=== PATIENT | female | born 1945 | race Two or more races ===

== ENCOUNTER 2021-08-23 07:24 | Outpatient (CLI) | payer OTHER | END 2021-08-23 07:25 | disposition home or self-care (01) | LOC: NUCLEAR 07:24 | PROVIDERS: ATTEND Internal Medicine Hematology & Oncology | DX: K82.9 Disease of gallbladder, unspecified (principal) | CPT/HCPCS: 78227; A9537; J2805 ==

== ENCOUNTER 2021-09-13 09:34 | Outpatient (CLI) | payer OTHER | END 2021-09-13 09:43 | disposition home or self-care (01) | LOC: LAB 09:34 | PROVIDERS: ATTEND Internal Medicine Hematology & Oncology | DX: D50.8 Other iron deficiency anemias (principal); I10 Essential (primary) hypertension; R79.89 Other specified abnormal findings of blood chemistry; R74.02 Elevation of levels of lactic acid dehydrogenase [LDH]; K76.89 Other specified diseases of liver; D51.1 Vitamin B12 deficiency anemia due to selective vitamin B12 malabsorption with proteinuria; E03.8 Other specified hypothyroidism; E06.3 Autoimmune thyroiditis; R97.0 Elevated carcinoembryonic antigen [CEA]; R97.8 Other abnormal tumor markers; E55.9 Vitamin D deficiency, unspecified; M81.0 Age-related osteoporosis without current pathological fracture; K80.10 Calculus of gallbladder with chronic cholecystitis without obstruction ==

== ENCOUNTER 2022-10-27 11:38 | Emergency (ER) | payer OTHER ==
[~2022-10-27] VITALS: Ht 142.2 cm; Wt 48.1 kg
[2022-10-27] MEDS ORDERED: ARICEPT10 MG (11:51)
[2022-10-27] MEDS ORDERED: PROTONIX40 MG (11:51)
[2022-10-27] MEDS ORDERED: CRESTOR5 MG (11:52)
[2022-10-27] MEDS ORDERED: PEPCID AC10 MG (11:52)
== END 2022-10-27 20:12 | disposition home or self-care (01) ==
LOC: ER 11:38
DX: K29.70 Gastritis, unspecified, without bleeding (principal); K80.20 Calculus of gallbladder without cholecystitis without obstruction; I10 Essential (primary) hypertension; K27.9 Peptic ulcer, site unspecified, unspecified as acute or chronic, without hemorrhage or perforation; Z88.6 Allergy status to analgesic agent; K21.9 Gastro-esophageal reflux disease without esophagitis

== ENCOUNTER 2023-03-01 09:13 | Outpatient (CLI) | payer OTHER ==
[~2023-03-01 09:13] MED LIST: ARICEPT10 MG; CRESTOR5 MG; PEPCID AC10 MG; PROTONIX40 MG
== END 2023-03-01 09:30 | disposition home or self-care (01) ==
LOC: TOM 09:13
PROVIDERS: ATTEND Internal Medicine Hematology & Oncology
DX: K80.10 Calculus of gallbladder with chronic cholecystitis without obstruction (principal); M81.0 Age-related osteoporosis without current pathological fracture; D51.3 Other dietary vitamin B12 deficiency anemia; D51.1 Vitamin B12 deficiency anemia due to selective vitamin B12 malabsorption with proteinuria
CPT/HCPCS: 71260; 74177; Q9965

== ENCOUNTER 2023-03-12 13:39 | Outpatient (CLI) | payer OTHER | END 2023-03-12 13:42 | disposition home or self-care (01) | LOC: NUCLEAR 13:39 | PROVIDERS: ATTEND Internal Medicine Hematology & Oncology | DX: M81.0 Age-related osteoporosis without current pathological fracture (principal); K80.10 Calculus of gallbladder with chronic cholecystitis without obstruction; D51.3 Other dietary vitamin B12 deficiency anemia; D51.1 Vitamin B12 deficiency anemia due to selective vitamin B12 malabsorption with proteinuria ==

== ENCOUNTER → 2023-04-30 06:00 | Outpatient (CLI) | payer OTHER | END | disposition home or self-care (01) | LOC: LAB 06:00 → ADM 14:00 → AMB-ENDOS 05-02 14:00 → EDSTATUS 05-02 14:00 | PROVIDERS: ATTEND Surgery | DX: Z03.818 Encounter for observation for suspected exposure to other biological agents ruled out (principal); Z20.822 Contact with and (suspected) exposure to COVID-19 ==

== ENCOUNTER 2023-04-30 16:51 | Inpatient (IN) | payer OTHER ==
[~2023-04-30] VITALS: Ht 152.4 cm; Wt 40.8 kg
[2023-04-30 20:04] LABS: HEMATOCRIT 25.6 % (36.0-45.00); MEAN CORPUSCULAR HGB CONC 31.1 g/dl (32.0-36.0); PLATELET COUNT 506 K/uL (150-450); RED BLOOD COUNT 3.69 M/uL (4.00-6.00); RED CELL DISTRIBUTION WIDTH 18.8 % (11.5-14.5)
[2023-04-30 20:07] LABS: MEAN CELL VOLUME 69.4 fL (80.00-100.00); MEAN CORPUSCULAR HEMOGLOBIN 21.6 pg (27.00-32.0)
[2023-04-30 20:26] LABS: ALBUMIN 2.2 gm/dL (3.4-5.0); BILIRUBIN TOTAL 0.36 mg/dL (0.3-1.2); CALCIUM 7.6 mg/dL (8.5-10.1); CREATININE SERUM 0.55 mg/dL (0.55-1.02); GFR 107.75; GLOBULINA 5.3 G/DL (2.4-3.5); POTASSIUM 3.39 mEq/L (3.5-5.1); TOTAL PROTEIN 7.5 gm/dL (6.4-8.2)
[2023-04-30 23:13] LABS: PH,URINE 6.5 (5.0-8.0); URINE APPEARANCE Clear; URINE BILIRRUBIN Negative (NEGATIVE); URINE BLOOD Negative; URINE COLOR Yellow; URINE GLUCOSE Negative (NEGATIVE); URINE LEUKOCYTE Negative; URINE NITRATE Negative; URINE PROTEIN Negative (NEGATIVE); URINE UROBILINOGEN 0.2 E.U./dl
[2023-04-30 23:17] LABS: URINE BACTERIA 191.9 uL (0.0-1933); URINE EPITHELIAL CELLS 23.4 uL (0.0-38.8); URINE RBC 2.9 uL (0.0-20.8); URINE WBC 13.7 uL (0.0-23.2)
[2023-05-01 04:14] LABS: INR 1.12; PARTIAL THROMBOPLASTIN TIME 30.4 SECONDS (22.0-34.0); PROTHROMBIN TIME 11.7 SECONDS (9.0-11.5)
[2023-05-01 13:07] LABS: CALCIUM 7.3 mg/dL (8.5-10.1); CHOL HDL RATIO 2.2 (0-5.0); CREATININE SERUM 0.55 mg/dL (0.55-1.02); GFR 107.75; POTASSIUM 3.35 mEq/L (3.5-5.1)
[2023-05-01 22:20] LABS: URINE APPEARANCE Clear; URINE BILIRRUBIN Negative (NEGATIVE); URINE BLOOD Negative; URINE COLOR Yellow; URINE GLUCOSE Negative (NEGATIVE); URINE LEUKOCYTE Negative; URINE NITRATE Negative; URINE PROTEIN Negative (NEGATIVE); URINE UROBILINOGEN 0.2 E.U./dl
[2023-05-01 22:21] LABS: URINE BACTERIA 8.4 uL (0.0-1933); URINE EPITHELIAL CELLS 5.1 uL (0.0-38.8); URINE RBC 4.5 uL (0.0-20.8)
[2023-05-02 06:39] LABS: HEMATOCRIT 29.9 % (36.0-45.00); HEMOGLOBIN 10.2 g/dL (12.0-15.00); MEAN CELL VOLUME 76.6 fL (80.00-100.00); MEAN CORPUSCULAR HEMOGLOBIN 26.1 pg (27.00-32.0); MEAN CORPUSCULAR HGB CONC 34.1 g/dl (32.0-36.0); PLATELET COUNT 363 K/uL (150-450); RED CELL DISTRIBUTION WIDTH 20.1 % (11.5-14.5)
[2023-05-02 07:10] LABS: BILIRUBIN TOTAL 0.48 mg/dL (0.3-1.2); CALCIUM 7.8 mg/dL (8.5-10.1); CREATININE SERUM 0.34 mg/dL (0.55-1.02); GFR 187.7; GLOBULINA 3.8 G/DL (2.4-3.5); PHOSPHOROUS 3.1 mg/dL (2.5-4.9); POTASSIUM 3.58 mEq/L (3.5-5.1); TOTAL PROTEIN 5.8 gm/dL (6.4-8.2)
[2023-05-02 07:18] LABS: C-REACTIVE PROTEIN 16.5 MG/DL (0.00-0.29)
[2023-05-06 06:44] LABS: HEMATOCRIT 33.6 % (36.0-45.00); HEMOGLOBIN 11.2 g/dL (12.0-15.00); MEAN CELL VOLUME 76.5 fL (80.00-100.00); MEAN CORPUSCULAR HEMOGLOBIN 25.5 pg (27.00-32.0); MEAN CORPUSCULAR HGB CONC 33.3 g/dl (32.0-36.0); PLATELET COUNT 329 K/uL (150-450); RED BLOOD COUNT 4.39 M/uL (4.00-6.00); RED CELL DISTRIBUTION WIDTH 20.8 % (11.5-14.5)
[2023-05-06 06:55] LABS: INR 1.11; PROTHROMBIN TIME 11.6 SECONDS (9.0-11.5)
[2023-05-06 07:08] LABS: ALBUMIN 2.3 gm/dL (3.4-5.0); BILIRUBIN TOTAL 0.32 mg/dL (0.3-1.2); BILIRUBIN,CONJUGATED 0.16 mg/dL (0.0-0.2); BILIRUBIN,UNCONJUGATED 0.16 mg/dL (0.0-0.6); CALCIUM 7.8 mg/dL (8.5-10.1); CHOL HDL RATIO 1.7 (0-5.0); CREATININE SERUM 0.35 mg/dL (0.55-1.02); GFR 181.53; GLOBULINA 3.6 G/DL (2.4-3.5); MAGNESIUM 2.1 mg/dL (1.8-2.4); POTASSIUM 3.15 mEq/L (3.5-5.1); TOTAL PROTEIN 5.9 gm/dL (6.4-8.2)
[2023-05-07 07:07] LABS: hav igm Negative (Negative); hcv Non Reactive (Non Reactive); hep b c Negative (Negative)
[2023-05-08 08:21] LABS: UREA CLEARANCE 41.6 ML/MIN
[2023-05-09 07:17] LABS: HEMATOCRIT 33.6 % (36.0-45.00); HEMOGLOBIN 10.9 g/dL (12.0-15.00); MEAN CELL VOLUME 93.8 fL (80.00-100.00); MEAN CORPUSCULAR HEMOGLOBIN 30.6 pg (27.00-32.0); MEAN CORPUSCULAR HGB CONC 32.6 g/dl (32.0-36.0); PLATELET COUNT 135 K/uL (150-450); RED BLOOD COUNT 3.58 M/uL (4.00-6.00); RED CELL DISTRIBUTION WIDTH 12.9 % (11.5-14.5)
[2023-05-09 07:39] LABS: ALBUMIN 3.1 gm/dL (3.4-5.0); BILIRUBIN TOTAL 0.5 mg/dL (0.3-1.2); CALCIUM 8.1 mg/dL (8.5-10.1); CREATININE SERUM 0.84 mg/dL (0.55-1.02); GFR 66.1; GLOBULINA 3.2 G/DL (2.4-3.5); MAGNESIUM 1.8 mg/dL (1.8-2.4); PHOSPHOROUS 2.8 mg/dL (2.5-4.9); POTASSIUM 4.28 mEq/L (3.5-5.1); TOTAL PROTEIN 6.3 gm/dL (6.4-8.2)
[2023-05-12 14:17] LABS: HEMATOCRIT 36.4 % (36.0-45.00); HEMOGLOBIN 11.9 g/dL (12.0-15.00); MEAN CELL VOLUME 79.2 fL (80.00-100.00); MEAN CORPUSCULAR HGB CONC 32.8 g/dl (32.0-36.0); PLATELET COUNT 218 K/uL (150-450); RED BLOOD COUNT 4.59 M/uL (4.00-6.00)
[2023-05-12 14:28] LABS: RED CELL DISTRIBUTION WIDTH 25.4 % (11.5-14.5)
[2023-05-12 14:38] LABS: INR 1.09; PARTIAL THROMBOPLASTIN TIME 37.6 SECONDS (22.0-34.0); PROTHROMBIN TIME 11.4 SECONDS (9.0-11.5)
[2023-05-12 14:48] LABS: ALBUMIN 2.7 gm/dL (3.4-5.0); BILIRUBIN TOTAL 0.26 mg/dL (0.3-1.2); CALCIUM 8.2 mg/dL (8.5-10.1); CREATININE SERUM 0.46 mg/dL (0.55-1.02); GFR 132.43; GLOBULINA 3.3 G/DL (2.4-3.5); MAGNESIUM 2.1 mg/dL (1.8-2.4)
[2023-05-12 14:59] LABS: PHOSPHOROUS 1.7 mg/dL (2.5-4.9); POTASSIUM 2.82 mEq/L (3.5-5.1)
[2023-05-13 07:08] LABS: HEMATOCRIT 31.3 % (36.0-45.00); HEMOGLOBIN 10.6 g/dL (12.0-15.00); MEAN CELL VOLUME 78.1 fL (80.00-100.00); MEAN CORPUSCULAR HEMOGLOBIN 26.3 pg (27.00-32.0); MEAN CORPUSCULAR HGB CONC 33.7 g/dl (32.0-36.0); PLATELET COUNT 256 K/uL (150-450); RED BLOOD COUNT 4.02 M/uL (4.00-6.00); RED CELL DISTRIBUTION WIDTH 24.2 % (11.5-14.5)
[2023-05-13 07:15] LABS: ALBUMIN 2.4 gm/dL (3.4-5.0); BILIRUBIN TOTAL 0.29 mg/dL (0.3-1.2); BILIRUBIN,CONJUGATED 0.12 mg/dL (0.0-0.2); BILIRUBIN,UNCONJUGATED 0.17 mg/dL (0.0-0.6); CALCIUM 7.2 mg/dL (8.5-10.1); CHOL HDL RATIO 1.9 (0-5.0); GFR 225.52; POTASSIUM 3.24 mEq/L (3.5-5.1); TOTAL PROTEIN 5.4 gm/dL (6.4-8.2)
[2023-05-13 07:27] LABS: CREATININE SERUM 0.29 mg/dL (0.55-1.02)
[2023-05-13 07:54] LABS: INR 1.06; PARTIAL THROMBOPLASTIN TIME 29.2 SECONDS (22.0-34.0); PROTHROMBIN TIME 11.1 SECONDS (9.0-11.5)
[2023-05-15 07:51] LABS: HEMATOCRIT 33.8 % (36.0-45.00); HEMOGLOBIN 11.2 g/dL (12.0-15.00); MEAN CELL VOLUME 78.7 fL (80.00-100.00); MEAN CORPUSCULAR HEMOGLOBIN 26.2 pg (27.00-32.0); MEAN CORPUSCULAR HGB CONC 33.3 g/dl (32.0-36.0); PLATELET COUNT 243 K/uL (150-450); RED BLOOD COUNT 4.29 M/uL (4.00-6.00)
[2023-05-15 08:13] LABS: RED CELL DISTRIBUTION WIDTH 25.9 % (11.5-14.5)
[2023-05-15 08:25] LABS: ALBUMIN 2.7 gm/dL (3.4-5.0); BILIRUBIN TOTAL 0.34 mg/dL (0.3-1.2); CREATININE SERUM 0.39 mg/dL (0.55-1.02); GFR 160.21; MAGNESIUM 2.1 mg/dL (1.8-2.4); PHOSPHOROUS 2.1 mg/dL (2.5-4.9); POTASSIUM 3.77 mEq/L (3.5-5.1); TOTAL PROTEIN 5.7 gm/dL (6.4-8.2)
[2023-05-20 06:53] LABS: HEMOGLOBIN 10.4 g/dL (12.0-15.00); MEAN CELL VOLUME 81.2 fL (80.00-100.00); MEAN CORPUSCULAR HEMOGLOBIN 26.5 pg (27.00-32.0); MEAN CORPUSCULAR HGB CONC 32.6 g/dl (32.0-36.0); PLATELET COUNT 201 K/uL (150-450); RED BLOOD COUNT 3.94 M/uL (4.00-6.00)
[2023-05-20 07:04] LABS: RED CELL DISTRIBUTION WIDTH 27.6 % (11.5-14.5)
[2023-05-20 07:28] LABS: ALBUMIN 2.6 gm/dL (3.4-5.0); BILIRUBIN TOTAL 0.3 mg/dL (0.3-1.2); CALCIUM 8.1 mg/dL (8.5-10.1); CREATININE SERUM 0.35 mg/dL (0.55-1.02); GFR 181.04; GLOBULINA 3.3 G/DL (2.4-3.5); POTASSIUM 4.36 mEq/L (3.5-5.1); TOTAL PROTEIN 5.9 gm/dL (6.4-8.2)
[2023-05-23 06:23] LABS: HEMATOCRIT 33.9 % (36.0-45.00); HEMOGLOBIN 11.3 g/dL (12.0-15.00); MEAN CELL VOLUME 81.1 fL (80.00-100.00); MEAN CORPUSCULAR HEMOGLOBIN 27.1 pg (27.00-32.0); MEAN CORPUSCULAR HGB CONC 33.5 g/dl (32.0-36.0); PLATELET COUNT 224 K/uL (150-450); RED BLOOD COUNT 4.18 M/uL (4.00-6.00)
[2023-05-23 06:27] LABS: RED CELL DISTRIBUTION WIDTH 27.5 % (11.5-14.5)
[2023-05-23 07:16] LABS: ALBUMIN 2.7 gm/dL (3.4-5.0); BILIRUBIN TOTAL 0.27 mg/dL (0.3-1.2); CALCIUM 8.2 mg/dL (8.5-10.1); CREATININE SERUM 0.41 mg/dL (0.55-1.02); GFR 150.83; GLOBULINA 3.3 G/DL (2.4-3.5); POTASSIUM 4.09 mEq/L (3.5-5.1)
[2023-05-27 08:12] LABS: HEMATOCRIT 33.8 % (36.0-45.00); HEMOGLOBIN 11.3 g/dL (12.0-15.00); MEAN CELL VOLUME 81.7 fL (80.00-100.00); MEAN CORPUSCULAR HEMOGLOBIN 27.3 pg (27.00-32.0); MEAN CORPUSCULAR HGB CONC 33.4 g/dl (32.0-36.0); PLATELET COUNT 226 K/uL (150-450); RED BLOOD COUNT 4.14 M/uL (4.00-6.00)
[2023-05-27 08:38] LABS: ALBUMIN 2.5 gm/dL (3.4-5.0); CALCIUM 8.2 mg/dL (8.5-10.1); CREATININE SERUM 0.51 mg/dL (0.55-1.02); GFR 117.25; PHOSPHOROUS 2.4 mg/dL (2.5-4.9); POTASSIUM 3.32 mEq/L (3.5-5.1)
[2023-05-27 08:46] LABS: RED CELL DISTRIBUTION WIDTH 26.4 % (11.5-14.5)
[2023-05-28 07:44] LABS: HEMATOCRIT 33.4 % (36.0-45.00); MEAN CELL VOLUME 81.7 fL (80.00-100.00); MEAN CORPUSCULAR HGB CONC 33.3 g/dl (32.0-36.0); PLATELET COUNT 216 K/uL (150-450); RED BLOOD COUNT 4.09 M/uL (4.00-6.00)
[2023-05-28 07:47] LABS: RED CELL DISTRIBUTION WIDTH 26.5 % (11.5-14.5)
[2023-05-28 07:48] LABS: HEMOGLOBIN 11.1 g/dL (12.0-15.00); MEAN CORPUSCULAR HEMOGLOBIN 27.1 pg (27.00-32.0)
[2023-05-28 08:16] LABS: ALBUMIN 2.4 gm/dL (3.4-5.0); BILIRUBIN TOTAL 0.34 mg/dL (0.3-1.2); CALCIUM 7.8 mg/dL (8.5-10.1); CREATININE SERUM 0.51 mg/dL (0.55-1.02); GFR 117.25; GLOBULINA 3.4 G/DL (2.4-3.5); MAGNESIUM 1.8 mg/dL (1.8-2.4); PHOSPHOROUS 3.4 mg/dL (2.5-4.9); POTASSIUM 3.86 mEq/L (3.5-5.1); TOTAL PROTEIN 5.8 gm/dL (6.4-8.2)
[2023-05-30 06:51] LABS: HEMATOCRIT 33.1 % (36.0-45.00); HEMOGLOBIN 10.9 g/dL (12.0-15.00); MEAN CELL VOLUME 82.1 fL (80.00-100.00); MEAN CORPUSCULAR HEMOGLOBIN 26.9 pg (27.00-32.0); MEAN CORPUSCULAR HGB CONC 32.8 g/dl (32.0-36.0); PLATELET COUNT 258 K/uL (150-450); RED BLOOD COUNT 4.03 M/uL (4.00-6.00)
[2023-05-30 07:13] LABS: ALBUMIN 2.3 gm/dL (3.4-5.0); BILIRUBIN TOTAL 0.19 mg/dL (0.3-1.2); CALCIUM 7.7 mg/dL (8.5-10.1); CREATININE SERUM 0.38 mg/dL (0.55-1.02); GFR 164.65; GLOBULINA 3.1 G/DL (2.4-3.5); MAGNESIUM 1.8 mg/dL (1.8-2.4); POTASSIUM 3.07 mEq/L (3.5-5.1); TOTAL PROTEIN 5.4 gm/dL (6.4-8.2)
[2023-05-30 08:35] LABS: PHOSPHOROUS 1.6 mg/dL (2.5-4.9)
[2023-06-02 09:10] LABS: ALBUMIN 2.3 gm/dL (3.4-5.0); BILIRUBIN TOTAL 0.26 mg/dL (0.3-1.2); CALCIUM 7.8 mg/dL (8.5-10.1); CREATININE SERUM 0.42 mg/dL (0.55-1.02); GFR 146.69; GLOBULINA 2.9 G/DL (2.4-3.5); MAGNESIUM 1.7 mg/dL (1.8-2.4); TOTAL PROTEIN 5.2 gm/dL (6.4-8.2)
[2023-06-02 09:15] LABS: HEMATOCRIT 31.5 % (36.0-45.00); HEMOGLOBIN 10.7 g/dL (12.0-15.00); MEAN CELL VOLUME 81.6 fL (80.00-100.00); MEAN CORPUSCULAR HEMOGLOBIN 27.8 pg (27.00-32.0); PLATELET COUNT 238 K/uL (150-450); RED BLOOD COUNT 3.86 M/uL (4.00-6.00)
[2023-06-02 09:46] LABS: PHOSPHOROUS 1.4 mg/dL (2.5-4.9); POTASSIUM 2.78 mEq/L (3.5-5.1)
[2023-06-03 08:03] LABS: ALBUMIN 2.3 gm/dL (3.4-5.0); BILIRUBIN TOTAL 0.24 mg/dL (0.3-1.2); CALCIUM 7.7 mg/dL (8.5-10.1); CREATININE SERUM 0.44 mg/dL (0.55-1.02); GFR 139.03; GLOBULINA 3.2 G/DL (2.4-3.5); MAGNESIUM 1.6 mg/dL (1.8-2.4); POTASSIUM 3.59 mEq/L (3.5-5.1); TOTAL PROTEIN 5.5 gm/dL (6.4-8.2)
[2023-06-03 08:15] LABS: PHOSPHOROUS 1.7 mg/dL (2.5-4.9)
[2023-06-04 08:49] LABS: CALCIUM 7.8 mg/dL (8.5-10.1); CREATININE SERUM 0.45 mg/dL (0.55-1.02); GFR 135.47; MAGNESIUM 1.5 mg/dL (1.8-2.4); POTASSIUM 3.26 mEq/L (3.5-5.1)
[2023-06-04 09:04] LABS: PHOSPHOROUS 1.4 mg/dL (2.5-4.9)
[2023-06-04 21:06] LABS: CKMB < 1.0 NG/ML (0.5-3.6); PHOSPHOKINASE CREATININE 14 U/L (26-192)
[2023-06-05 06:29] LABS: HEMATOCRIT 33.2 % (36.0-45.00); HEMOGLOBIN 11.1 g/dL (12.0-15.00); MEAN CELL VOLUME 82.5 fL (80.00-100.00); MEAN CORPUSCULAR HEMOGLOBIN 27.6 pg (27.00-32.0); MEAN CORPUSCULAR HGB CONC 33.4 g/dl (32.0-36.0); PLATELET COUNT 240 K/uL (150-450); RED BLOOD COUNT 4.03 M/uL (4.00-6.00)
[2023-06-05 06:41] LABS: ALBUMIN 2.3 gm/dL (3.4-5.0); BILIRUBIN TOTAL 0.25 mg/dL (0.3-1.2); CALCIUM 7.4 mg/dL (8.5-10.1); CREATININE SERUM 0.38 mg/dL (0.55-1.02); GFR 164.65; GLOBULINA 2.9 G/DL (2.4-3.5); MAGNESIUM 2.5 mg/dL (1.8-2.4); PHOSPHOROUS 2.5 mg/dL (2.5-4.9); POTASSIUM 3.53 mEq/L (3.5-5.1); TOTAL PROTEIN 5.2 gm/dL (6.4-8.2)
[2023-06-05 06:52] LABS: CKMB < 1.0 NG/ML (0.5-3.6); PHOSPHOKINASE CREATININE 9 U/L (26-192)
[2023-06-05 07:01] LABS: RED CELL DISTRIBUTION WIDTH 25.9 % (11.5-14.5)
[2023-06-05 13:42] LABS: CKMB 1.3 NG/ML (0.5-3.6)
[2023-06-08 08:09] LABS: HEMATOCRIT 36.6 % (36.0-45.00); HEMOGLOBIN 12.2 g/dL (12.0-15.00); MEAN CELL VOLUME 84.6 fL (80.00-100.00); MEAN CORPUSCULAR HEMOGLOBIN 28.1 pg (27.00-32.0); MEAN CORPUSCULAR HGB CONC 33.2 g/dl (32.0-36.0); PLATELET COUNT 297 K/uL (150-450); RED BLOOD COUNT 4.33 M/uL (4.00-6.00)
[2023-06-08 08:10] LABS: RED CELL DISTRIBUTION WIDTH 25.1 % (11.5-14.5)
[2023-06-08 08:26] LABS: ALBUMIN 2.5 gm/dL (3.4-5.0); BILIRUBIN TOTAL 0.37 mg/dL (0.3-1.2); CALCIUM 7.7 mg/dL (8.5-10.1); CREATININE SERUM 0.48 mg/dL (0.55-1.02); GFR 125.74; GLOBULINA 3.1 G/DL (2.4-3.5); MAGNESIUM 1.8 mg/dL (1.8-2.4); POTASSIUM 3.39 mEq/L (3.5-5.1); TOTAL PROTEIN 5.6 gm/dL (6.4-8.2)
[2023-06-08 09:40] LABS: PHOSPHOROUS 1.6 mg/dL (2.5-4.9)
[2023-06-11 04:57] LABS: HEMATOCRIT 35.2 % (36.0-45.00); MEAN CELL VOLUME 83.1 fL (80.00-100.00); MEAN CORPUSCULAR HGB CONC 33.5 g/dl (32.0-36.0); PLATELET COUNT 238 K/uL (150-450); RED BLOOD COUNT 4.24 M/uL (4.00-6.00); RED CELL DISTRIBUTION WIDTH 24.7 % (11.5-14.5)
[2023-06-11 04:59] LABS: HEMOGLOBIN 11.8 g/dL (12.0-15.00); MEAN CORPUSCULAR HEMOGLOBIN 27.8 pg (27.00-32.0)
[2023-06-11 05:29] LABS: ALBUMIN 2.3 gm/dL (3.4-5.0); BILIRUBIN TOTAL 0.19 mg/dL (0.3-1.2); CALCIUM 7.2 mg/dL (8.5-10.1); CREATININE SERUM 0.36 mg/dL (0.55-1.02); GFR 175.25; MAGNESIUM 1.5 mg/dL (1.8-2.4); TOTAL PROTEIN 5.3 gm/dL (6.4-8.2)
[2023-06-11 05:44] LABS: PHOSPHOROUS 1.1 mg/dL (2.5-4.9); POTASSIUM 2.63 mEq/L (3.5-5.1)
[2023-06-12 06:31] LABS: HEMATOCRIT 34.3 % (36.0-45.00); HEMOGLOBIN 11.1 g/dL (12.0-15.00); MEAN CELL VOLUME 84.3 fL (80.00-100.00); MEAN CORPUSCULAR HEMOGLOBIN 27.4 pg (27.00-32.0); MEAN CORPUSCULAR HGB CONC 32.5 g/dl (32.0-36.0); PLATELET COUNT 252 K/uL (150-450); RED BLOOD COUNT 4.06 M/uL (4.00-6.00); RED CELL DISTRIBUTION WIDTH 24.1 % (11.5-14.5)
[2023-06-12 06:56] LABS: ALBUMIN 2.2 gm/dL (3.4-5.0); BILIRUBIN TOTAL 0.13 mg/dL (0.3-1.2); CREATININE SERUM 0.37 mg/dL (0.55-1.02); GFR 169.8; GLOBULINA 2.7 G/DL (2.4-3.5); PHOSPHOROUS 2.1 mg/dL (2.5-4.9); POTASSIUM 3.17 mEq/L (3.5-5.1); TOTAL PROTEIN 4.9 gm/dL (6.4-8.2)
[2023-06-15 15:38] LABS: HEMATOCRIT 37.4 % (36.0-45.00); HEMOGLOBIN 12.3 g/dL (12.0-15.00); MEAN CELL VOLUME 84.7 fL (80.00-100.00); MEAN CORPUSCULAR HEMOGLOBIN 27.9 pg (27.00-32.0); MEAN CORPUSCULAR HGB CONC 32.9 g/dl (32.0-36.0); PLATELET COUNT 256 K/uL (150-450); RED BLOOD COUNT 4.41 M/uL (4.00-6.00); RED CELL DISTRIBUTION WIDTH 22.8 % (11.5-14.5)
[2023-06-15 16:20] LABS: ALBUMIN 2.5 gm/dL (3.4-5.0); BILIRUBIN TOTAL 0.24 mg/dL (0.3-1.2); CALCIUM 7.8 mg/dL (8.5-10.1); CREATININE SERUM 0.53 mg/dL (0.55-1.02); GFR 112.16; GLOBULINA 3.1 G/DL (2.4-3.5); TOTAL PROTEIN 5.6 gm/dL (6.4-8.2)
[2023-06-15 16:27] LABS: POTASSIUM 2.5 mEq/L (3.5-5.1)
[2023-06-17 07:44] LABS: HEMATOCRIT 35.5 % (36.0-45.00); HEMOGLOBIN 12.1 g/dL (12.0-15.00); MEAN CELL VOLUME 83.4 fL (80.00-100.00); MEAN CORPUSCULAR HEMOGLOBIN 28.3 pg (27.00-32.0); PLATELET COUNT 256 K/uL (150-450); RED BLOOD COUNT 4.26 M/uL (4.00-6.00); RED CELL DISTRIBUTION WIDTH 23.1 % (11.5-14.5)
[2023-06-17 08:01] LABS: ALBUMIN 2.3 gm/dL (3.4-5.0); BILIRUBIN TOTAL 0.42 mg/dL (0.3-1.2); CREATININE SERUM 0.52 mg/dL (0.55-1.02); GFR 114.65; GLOBULINA 2.9 G/DL (2.4-3.5); TOTAL PROTEIN 5.2 gm/dL (6.4-8.2)
[2023-06-17 08:30] LABS: POTASSIUM 2.51 mEq/L (3.5-5.1)
== END 2023-06-18 11:40 | disposition designated cancer center or children's hospital (05) | DRG 603 ==
LOC: ER 16:51 → MEDJ 05-01 00:09 → MEDI 06-08 18:16
PROVIDERS: General Practice; Internal Medicine; Internal Medicine Gastroenterology; Internal Medicine Hematology & Oncology; Internal Medicine Infectious Disease; ADMIT Internal Medicine; ATTEND Internal Medicine
PROC: 30233N1 Transfusion of Nonautologous Red Blood Cells into Peripheral Vein, Percutaneous Approach (ICD-10-PCS; 2023-05-01)
PROC: 02HV33Z Insertion of Infusion Device into Superior Vena Cava, Percutaneous Approach (ICD-10-PCS; 2023-05-03)
PROC: BW21YZZ Computerized Tomography (CT Scan) of Abdomen and Pelvis using Other Contrast (ICD-10-PCS; 2023-05-07)
PROC: 0DBK8ZX Excision of Ascending Colon, Via Natural or Artificial Opening Endoscopic, Diagnostic (ICD-10-PCS; principal; 2023-05-13)
PROC: 0DBP8ZX Excision of Rectum, Via Natural or Artificial Opening Endoscopic, Diagnostic (ICD-10-PCS; 2023-05-13)
PROC: 0DBB8ZX Excision of Ileum, Via Natural or Artificial Opening Endoscopic, Diagnostic (ICD-10-PCS; 2023-05-13)
PROC: 0DBM8ZX Excision of Descending Colon, Via Natural or Artificial Opening Endoscopic, Diagnostic (ICD-10-PCS; 2023-05-13)
PROC: BW30YZZ Magnetic Resonance Imaging (MRI) of Abdomen using Other Contrast (ICD-10-PCS; 2023-05-14)
PROC: BW21YZZ Computerized Tomography (CT Scan) of Abdomen and Pelvis using Other Contrast (ICD-10-PCS; 2023-05-20)
PROC: 0W9F30Z Drainage of Abdominal Wall with Drainage Device, Percutaneous Approach (ICD-10-PCS; 2023-05-28)
PROC: 0W9F30Z Drainage of Abdominal Wall with Drainage Device, Percutaneous Approach (ICD-10-PCS; 2023-05-31)
DX: L02.211 Cutaneous abscess of abdominal wall (principal); K63.2 Fistula of intestine; K55.1 Chronic vascular disorders of intestine; I77.4 Celiac artery compression syndrome; F02.82 Dementia in other diseases classified elsewhere, unspecified severity, with psychotic disturbance; L03.311 Cellulitis of abdominal wall; K62.1 Rectal polyp; K52.89 Other specified noninfective gastroenteritis and colitis; B96.20 Unspecified Escherichia coli [E. coli] as the cause of diseases classified elsewhere; B96.4 Proteus (mirabilis) (morganii) as the cause of diseases classified elsewhere; B95.4 Other streptococcus as the cause of diseases classified elsewhere; G30.9 Alzheimer's disease, unspecified; K21.9 Gastro-esophageal reflux disease without esophagitis; K80.20 Calculus of gallbladder without cholecystitis without obstruction; D64.9 Anemia, unspecified; D51.0 Vitamin B12 deficiency anemia due to intrinsic factor deficiency; M81.8 Other osteoporosis without current pathological fracture
CPT/HCPCS: 74182; 74185

== ENCOUNTER 2025-05-14 01:59 | Emergency (ER) | payer OTHER ==
[~2025-05-14] VITALS: Ht 139.7 cm; Wt 40.8 kg
[2025-05-14] MEDS ORDERED: 0.9 % SODIUM CHLORIDE 1,000 ML IV STA (03:12)
[2025-05-14] MEDS ORDERED: ONDANSETRON HCL 2 MG/ML VIAL IV STA (03:13)
[2025-05-14] MEDS ORDERED: FAMOtidine 10 MG/ML (4ML VIAL) IV PUSH STA (03:14)
[2025-05-14] MEDS ORDERED: HYOSCYAMINE SULFATE 0.125 MG TAB.SUBL SL ONE (03:15)
[2025-05-14] MEDS ORDERED: ONDANSETRON HCL 2 MG/ML VIAL ONE (03:19)
[2025-05-14] MEDS ORDERED: HYOSCYAMINE SULFATE 0.125 MG TAB.SUBL ONE (03:19)
[2025-05-14] MEDS ORDERED: FAMOTIDINE/PF 20 MG/2 ML VIAL ONE (03:20)
[2025-05-14] MEDS ORDERED: BARIUM SULFATE 450 ML ORAL.SUSP PO ONE (03:36)
[2025-05-14 03:40] LABS: ERYTHROCYTE SEDIMENTATION RATE 39 mm/hr (0-30)
[2025-05-14 03:42] LABS: BASO % 0.3 % (0.1-1.2); EOS # 0.12 (0.04-0.54); EOS % 1.7 % (0.7-7.0); LYMPH # 1.67 (1.18-3.74); LYMPH % 24.1 % (19.3-53.1); MEAN PLATELET VOLUME 9.90 fl (9.4-12.4); MONO # 0.75 (0.24-0.82); MONO % 10.8 % (4.7-12.5); NEUT # 4.34 (1.56-6.13); NEUT % 62.8 % (34.0-71.1); RED CELL DISTRIBUTION WIDTH 13.1 % (11.6-14.4)
[2025-05-14 04:03] LABS: INR 0.98
[2025-05-14 04:25] LABS: ALT/SGPT 21.0 U/L (12-78); AST/SGOT 22.0 U/L (15-37); BILIRUBIN TOTAL 0.55 mg/dL (0.3-1.2); BUN CREA RATIO 28.0 (7.0-25.0); CREATININE SERUM 0.46 mg/dL (0.55-1.02); GFR 131.72; GLOBULINA 3.6 G/DL (2.4-3.5); GLUCOSE FASTING 104.0 mg/dL (65-100); OSMOLALITY SERUM 287.0 MOSM/KG (275-295)
[2025-05-14 04:30] LABS: URINE APPEARANCE Clear; URINE BILIRRUBIN Negative (NEGATIVE); URINE BLOOD Negative; URINE COLOR Yellow; URINE GLUCOSE Negative (NEGATIVE); URINE KETONE Negative (NEGATIVE); URINE LEUKOCYTE Trace; URINE NITRATE Negative; URINE PROTEIN Negative (NEGATIVE); URINE UROBILINOGEN 0.2 E.U./dl
[2025-05-14 04:38] LABS: URINE BACTERIA 8.3 uL (0.0-1933); URINE EPITHELIAL CELLS 3.6 uL (0.0-38.8); URINE RBC 4.8 uL (0.0-20.8); URINE WBC 12.6 uL (0.0-23.2)
[2025-05-14 04:41] LABS: URINE CAST 0.00 uL (0.0-1.40)
== END 2025-05-14 15:30 | disposition home or self-care (01) ==
LOC: ER 01:59
DX: K80.20 Calculus of gallbladder without cholecystitis without obstruction (principal); K29.70 Gastritis, unspecified, without bleeding; A04.8 Other specified bacterial intestinal infections; N28.1 Cyst of kidney, acquired; Z88.6 Allergy status to analgesic agent; Z88.0 Allergy status to penicillin
CPT/HCPCS: 36415; 74177; 96365; 96366; 99283; J2405; J3490

== ENCOUNTER 2025-05-20 11:25 | Outpatient (CLI) | payer OTHER | END 2025-05-20 11:32 | disposition home or self-care (01) | LOC: TOM 11:25 | PROVIDERS: ATTEND Internal Medicine Cardiovascular Disease | DX: R51.9 Headache, unspecified (principal) ==

== ENCOUNTER 2025-07-22 15:43 | Inpatient (IN) | payer OTHER ==
[~2025-07-22] VITALS: Ht 121.9 cm; Wt 40.8 kg
[2025-07-22] MEDS ORDERED: RESTORIL30 MG PO (16:14)
[2025-07-22] MEDS ORDERED: LIALDA1.2 GM PO (16:15)
--- NOTE | 2025-07-22 16:16 | NUR ---
PACIENTE ALERTA Y ORIENTADA X3 QUIEN VIENE CON REFIERIDO DE DR. HERNANDEZ DESDE ZEN MEDICA POR RULED OUT DE ABCESO E INFECCION.
[2025-07-22] MEDS ORDERED: PANTOPRAZOLE SODIUM 40 MG/VIAL VIAL IV SCH (16:25)
[2025-07-22] MEDS ORDERED: 0.9 % SODIUM CHLORIDE 1,000 ML IV SCH (16:30)
[2025-07-22] MEDS ORDERED: MORPHINE SULFATE 2 MG/ML SYRINGE IV PRN (16:30)
[2025-07-22] MEDS ORDERED: ONDANSETRON HCL 2 MG/ML VIAL IV PRN (16:30)
[2025-07-22] MEDS ORDERED: CIPROFLOXACIN IN 5 % DEXTROSE 400 MG/200 ML PIGGYBAG IV SCH (17:00)
--- NOTE | 2025-07-22 17:20 | NUR ---
SE ORIENTA PTE SOBRE TX A SEGUIR, LA MISMA REFIERE ENTENDER. SE CHRIS MUESTRA DE LAB, SE CANALIZA Y SE ADMINISTRA MED RODRÍGUEZ ORDEN MEDICA
[2025-07-22 17:34] LABS: BASO % 0.3 % (0.1-1.2); EOS # 0.11 (0.04-0.54); EOS % 1.6 % (0.7-7.0); LYMPH # 1.84 (1.18-3.74); LYMPH % 27.3 % (19.3-53.1); MEAN PLATELET VOLUME 9.90 fl (9.4-12.4); MONO # 0.59 (0.24-0.82); MONO % 8.7 % (4.7-12.5); NEUT # 4.17 (1.56-6.13); NEUT % 61.8 % (34.0-71.1); RED CELL DISTRIBUTION WIDTH 13.6 % (11.6-14.4)
[2025-07-22 17:38] LABS: ERYTHROCYTE SEDIMENTATION RATE 49 mm/hr (0-30)
[2025-07-22 17:56] LABS: INR 0.98
[2025-07-22 18:01] LABS: ALT/SGPT 31 U/L (12-78); AST/SGOT 15 U/L (15-37); BILIRUBIN TOTAL 0.57 mg/dL (0.3-1.2); BUN CREA RATIO 26 (7.0-25.0); CREATININE SERUM 0.61 mg/dL (0.55-1.02); GFR 94.86; GLOBULINA 4.1 G/DL (2.4-3.5); GLUCOSE FASTING 97 mg/dL (65-100); OSMOLALITY SERUM 284 MOSM/KG (275-295)
[2025-07-22] MEDS ORDERED: DIATRIZOATE MEGLUMINE, SODIUM 30 ML BOTTLE PO ONE (18:30)
[2025-07-22 18:54] LABS: URINE APPEARANCE Clear; URINE BILIRRUBIN Negative (NEGATIVE); URINE BLOOD Negative; URINE COLOR Yellow; URINE GLUCOSE Negative (NEGATIVE); URINE KETONE Negative (NEGATIVE); URINE LEUKOCYTE Negative; URINE NITRATE Negative; URINE PROTEIN Negative (NEGATIVE); URINE UROBILINOGEN 0.2 E.U./dl
[2025-07-22 18:57] LABS: URINE BACTERIA 19.1 uL (0.0-1933); URINE EPITHELIAL CELLS 5.2 uL (0.0-38.8); URINE WBC 5.3 uL (0.0-23.2)
[2025-07-22 19:01] LABS: URINE CAST 0.00 uL (0.0-1.40); URINE RBC 0.8 uL (0.0-20.8)
[2025-07-23 06:35] VITALS: BP 123/65; O2SAT 99
[2025-07-23 09:37] VITALS: BP 138/70; O2SAT 96
[2025-07-23] MEDS ORDERED: TUBERCULIN,PURIF.PROT.DERIV. 10 SKIN.TEST SKIN.TEST ID ONE (09:45)
[2025-07-23 18:09] VITALS: BP 111/62
[2025-07-23] MEDS ORDERED: TEMAZEPAM 15 MG CAPSULE PO SCH (21:00)
[2025-07-24 03:31] VITALS: BP 109/57; O2SAT 97
[2025-07-24 06:38] LABS: INR 1.01
[2025-07-24 09:07] VITALS: BP 125/57; O2SAT 99
[2025-07-24 18:38] VITALS: BP 137/62
[2025-07-25 02:48] VITALS: BP 109/55; O2SAT 95
[2025-07-25 09:00] VITALS: BP 152/69; O2SAT 97
[2025-07-25 18:31] VITALS: BP 125/64
[2025-07-25] MEDS ORDERED: PEG3350/SOD SULF,BICARB,CL/KCL 4,000 ML GALLON PO NR (19:00)
[2025-07-26 02:21] VITALS: BP 131/69; O2SAT 97
[2025-07-26 09:13] VITALS: BP 122/67; O2SAT 98
[2025-07-26] MEDS ORDERED: fentaNYL CITRATE 50 MCG/ML AMPUL IV ONE (15:00)
[2025-07-26] MEDS ORDERED: MIDAZOLAM HCL 2 MG/2 ML VIAL IV ONE (16:00)
[2025-07-26] MEDS ORDERED: FAMOTIDINE/PF 20 MG/2 ML VIAL IV PUSH SCH (21:00)
[2025-07-26 21:21] VITALS: BP 145/80
[2025-07-27 04:05] VITALS: BP 126/61; O2SAT 97
[2025-07-27 08:00] VITALS: BP 132/71; O2SAT 97
[2025-07-27] MEDS ORDERED: levoFLOXacin IN DEXTROSE 5 % 5 MG/ML PIGGYBAG IV SCH (09:00)
[2025-07-27] MEDS ORDERED: LEVOFLOXAC750 MG/150 IV (10:55)
[2025-07-27] MEDS ORDERED: PROTONIX40 MG PO (10:57)
[2025-07-27] MEDS ORDERED: BUDESONIDE EC3 M1 PO (11:02)
[2025-07-30 18:07] LABS: hav igm Negative (Negative); hep b c Negative (Negative); hep b s ag Negative (Negative)
== END 2025-07-27 15:01 | disposition home or self-care (01) | DRG 387 ==
LOC: ER 15:44 → MEDJ 07-23
PROVIDERS: General Practice; ADMIT Internal Medicine; ATTEND Internal Medicine
PROC: BW21YZZ Computerized Tomography (CT Scan) of Abdomen and Pelvis using Other Contrast (ICD-10-PCS; principal; 2025-07-22)
PROC: BW3GZZZ Magnetic Resonance Imaging (MRI) of Pelvic Region (ICD-10-PCS; 2025-07-23)
DX: K50.914 Crohn's disease, unspecified, with abscess (principal); I10 Essential (primary) hypertension; K50.913 Crohn's disease, unspecified, with fistula; G30.9 Alzheimer's disease, unspecified; F02.80 Dementia in other diseases classified elsewhere, unspecified severity, without behavioral disturbance, psychotic disturbance, mood disturbance, and anxiety
CPT/HCPCS: 72198